=== PATIENT | male | born 1975 | race Caucasian/White ===

== ENCOUNTER 2023-05-14 12:55 | Emergency (ER) | payer SELFPAY ==
[2023-05-14] MEDS ORDERED: Ketorolac 30 MG/ML SDV IM ONE (13:06)
== END 2023-05-14 13:56 ==
LOC: VM.ED 12:55
DX: M54.50 Low back pain, unspecified (principal); F17.200 Nicotine dependence, unspecified, uncomplicated; X50.9XXA Other and unspecified overexertion or strenuous movements or postures, initial encounter
CPT/HCPCS: 72070; 72100; 73120-RT; 96372; 99283; J1885